=== PATIENT | male | born 1980 | race African-American/Black ===

== ENCOUNTER 2022-09-07 16:06 | Emergency (ER) | payer SELFPAY ==
[2022-09-07 16:46] VITALS: BP 116/70; PULSE 90; RESP 20; TEMP 98.1; BMI 19.9
[2022-09-07] MEDS ORDERED: DOXYCYCLINE HYCLATE 100 MG CAPSULE PO ONE ×2 (17:53→18:26)
[2022-09-07] MEDS ORDERED: cefTRIAXone SODIUM 1 GM VIAL ONE (18:35)
[2022-09-07 20:38] LABS: HIV INTERPRETATION NEGATIVE (NEGATIVE)
[2022-09-07 20:41] LABS: SYPHILIS W/ RPR CONF REACTIVE (NONREACTIVE)
== END 2022-09-07 19:12 | disposition home or self-care (01) ==
LOC: JERFT 16:06
DX: A53.9 Syphilis, unspecified (principal); R36.9 Urethral discharge, unspecified; Z11.3 Encounter for screening for infections with a predominantly sexual mode of transmission
CPT/HCPCS: 36415; 86593; 86780; 87389; 87491; 87591; 99284-25